=== PATIENT | female | born 1935 | race Caucasian/White ===

== ENCOUNTER 2021-12-21 11:48 | Emergency (ER) | payer OTHER ==
[~2021-12-21] VITALS: Ht 172.7 cm; Wt 61.7 kg
[2021-12-21 12:10] VITALS: BP_SYST 182
--- NOTE | 2021-12-21 12:22 | NUR ---
BIBS BY BEING SENT OVER FROM CLINIC ON THURSDAY. PT REPORTS ABDOMINAL PAIN 08/20. PMD WANTED A CT ABD TO R/O PANCREATITIS, APPENDICITIS, AND SBO AND UTI. PT REPORTS BEING CONSTIPATED LATELY. PT REPORTS HAVING SLIGHT TENDERNESS WHEN PMD EXAMINED HER RLQ BUT PT STATES SHE HAS EPIGASTRIC PAIN. ALSO STATED FREQUENCY AND BURNING WITH URINATION. LAST BM YESTERDAY, NO DIARRHEA.
--- NOTE | 2021-12-21 14:03 | NUR ---
URINE COLLECTED AND SENT TO LAB. LAB TOOK PT FOR BLOOD DRAW.
[2021-12-21 14:25] LABS: BASOPHILS # (AUTO) 0.1 K/uL (0.0-0.2); BASOPHILS % (AUTO) 0.8 % (0.0-2.0); EOSINOPHILS # (AUTO) 0.1 K/uL (0.0-0.4); EOSINOPHILS % (AUTO) 0.9 % (0.0-4.0); HEMATOCRIT 39.8 % (36-48); LYMPHOCYTES # (AUTO) 1.2 K/uL (1.0-5.5); LYMPHOCYTES % (AUTO) 16.2 % (20.5-51.5); MEAN CORPUSCULAR VOLUME 94 fL (79.0-98.0); MONOCYTES # (AUTO) 0.5 K/uL (0.0-1.0); MONOCYTES % (AUTO) 7.4 % (1.7-9.3); NEUTROPHILS # (AUTO) 5.3 K/uL (1.8-7.7); NEUTROPHILS % (AUTO) 74.7 % (40.0-70.0); PLATELET COUNT (AUTO) 213 K/uL (130-430); RED BLOOD CELL COUNT(AUTO) 4.23 MIL/uL (4.2-6.2); RED CELL DISTRIBUTION WIDTH 12.4 % (9.0-15.0); WHITE BLOOD COUNT (AUTO) 7.1 K/uL (4.8-10.8)
[2021-12-21 14:47] LABS: BILIRUBIN,URINE NEGATIVE (NEGATIVE); BLOOD, URINE NEGATIVE (NEGATIVE); CLARITY/URINE CLEAR (CLEAR); COLOR,URINE YELLOW (YELLOW); GLUCOSE,URINE NEGATIVE (NEGATIVE); KETONES,URINE NEGATIVE (NEGATIVE); LEUKOCYTE ESTERASE ,URINE NEGATIVE (NEGATIVE); NITRITE, URINE NEGATIVE (NEGATIVE); PROTEIN URINE NEGATIVE (NEGATIVE); UROBILINOGEN,URINE 0.2 (0.2-1.0)
--- NOTE | 2021-12-21 15:29 | NUR ---
12 Lead EKG done at bedside, to read
--- NOTE | 2021-12-21 16:00 | NUR ---
Patient stable in no acute distress and or discomfort, daughter at bedside
[2021-12-21 16:09] LABS: ANION GAP 11 (5-15); CHLORIDE 96 mmol/L (98-107); GLUCOSE 110 mg/dL (70-99); POTASSIUM 4.1 mmol/L (3.5-5.1); SODIUM SERUM 134 mmol/L (136-145)
[2021-12-21 16:10] LABS: ALANINE AMINOTRANSFERASE 20 U/L (12-78); ALBUMIN 4.4 g/dL (3.4-4.8); ASPARTATE AMINOTRANSFERASE 23 U/L (10-37); C-REACTIVE PROTEIN QUANT < 0.2 mg/dL (0-0.5); CALCIUM 9.4 mg/dL (8.4-11.0); CREATININE 1.19 mg/dL (0.55-1.30); UREA NITROGEN, BLOOD 16 mg/dL (8-21)
[2021-12-21 16:22] VITALS: BP_SYST 131
--- NOTE | 2021-12-21 16:23 | NUR ---
Patient given written and verbal discharge instructions and verbalizes understanding. ER MD discussed with patient the results and treatment provided. Patient in stable condition. ID arm band removed. IV catheter removed intact and dressing applied, no active bleeding. Patient educated on pain management and to follow up with PMD. Pain Scale 0/*10 Opportunity for questions provided and answered. Medication side effect fact sheet provided.
[2021-12-21 16:27] LABS: AMYLASE 51 U/L (0-100); LACTATE DEHYDROGENASE 222 U/L (81-234); LIPASE 191 U/L (73-393)
[2021-12-21] MEDS ORDERED: NITR-85 PO (16:32)
[2021-12-21] MEDS ORDERED: OMEP20CA15 PO (16:32)
--- NOTE | 2021-12-21 16:51 | NUR ---
GIVEN PRESCRIPTIONS FOR OMEPRAZOLE AND BACTRIM
== END 2021-12-21 16:23 | disposition home or self-care (01) ==
LOC: SED 11:48
DX: R10.13 Epigastric pain (principal); R11.0 Nausea; I10 Essential (primary) hypertension; Z88.2 Allergy status to sulfonamides; Z88.5 Allergy status to narcotic agent; Z79.899 Other long term (current) drug therapy
CPT/HCPCS: 36415; 70450-TC; 76376; 80053; 80162; 81003; 82150; 83605; 83615; 83690; 84484; 85025; 86140; 99284

== ENCOUNTER 2023-02-07 17:21 | Emergency (ER) | payer OTHER ==
[~2023-02-07] VITALS: Ht 172.7 cm; Wt 65.8 kg
[~2023-02-07 17:21] MED LIST: NITR-85 PO; OMEP20CA15 PO
[2023-02-07 17:26] VITALS: BP_SYST 192; PULSE 85; RESP 20; TEMP 98.3; O2SAT 99
[2023-02-07] MEDS ORDERED: OMEPRAZOLE Non-Formulary 20 MG CAPSULE.DR PO ONE (19:00)
[2023-02-07 19:13] LABS: BASOPHILS % (AUTO) 0.5 % (0.0-2.0); EOSINOPHILS # (AUTO) 0.1 K/uL (0.0-0.4); HEMATOCRIT 37.8 % (36-48); HEMOGLOBIN 12.9 g/dL (12.0-16.0); LYMPHOCYTES # (AUTO) 0.7 K/uL (1.0-5.5); LYMPHOCYTES % (AUTO) 11.3 % (20.5-51.5); MEAN CORPUSCULAR HEMOGLOBIN 33 pg (27-31); MEAN CORPUSCULAR HGB CONC 34 % (32-36); MEAN CORPUSCULAR VOLUME 95 fL (79.0-98.0); MONOCYTES # (AUTO) 0.7 K/uL (0.0-1.0); MONOCYTES % (AUTO) 10.6 % (1.7-9.3); NEUTROPHILS % (AUTO) 75.6 % (40.0-70.0); PLATELET COUNT (AUTO) 193 K/uL (130-430); RED BLOOD CELL COUNT(AUTO) 3.98 MIL/uL (4.2-6.2); RED CELL DISTRIBUTION WIDTH 12.4 % (9.0-15.0); WHITE BLOOD COUNT (AUTO) 6.6 K/uL (4.8-10.8)
[2023-02-07 19:23] LABS: ANION GAP 5 (5-15); CALCIUM 9.9 mg/dL (8.4-11.0); CARBON DIOXIDE 30 mmol/L (23-29); CHLORIDE 97 mmol/L (98-107); CREATININE 1.11 mg/dL (0.55-1.30); GLUCOSE 193 mg/dL (74-106); SODIUM SERUM 132 mmol/L (136-145); UREA NITROGEN, BLOOD 18 mg/dL (8-21)
[2023-02-07] MEDS ORDERED: PANTOPRAZOLE SODIUM 40 MG TAB PO ONE (19:30)
[2023-02-07 19:33] LABS: ALANINE AMINOTRANSFERASE 18 U/L (12-78); ALBUMIN 3.8 g/dL (3.4-4.8); ASPARTATE AMINOTRANSFERASE 12 U/L (10-37); TOTAL BILIRUBIN 0.6 mg/dL (0.0-1.0); TOTAL PROTEIN, SERUM 7.4 g/dL (6.4-8.3)
[2023-02-07] MEDS ORDERED: OMEP40CA20 PO (20:56)
[2023-02-07 21:05] VITALS: BP_SYST 186; PULSE 85; RESP 13; TEMP 97.9; O2SAT 95
[2023-02-07 21:15] LABS: INFLUENZA TYPE A Negative (NEGATIVE); INFLUENZA TYPE B NEGATIVE (NEGATIVE)
== END 2023-02-07 21:05 | disposition home or self-care (01) ==
LOC: SED 17:21
DX: R10.13 Epigastric pain (principal); E11.9 Type 2 diabetes mellitus without complications; I10 Essential (primary) hypertension; Z88.2 Allergy status to sulfonamides; Z88.5 Allergy status to narcotic agent; Z79.899 Other long term (current) drug therapy; Z20.822 Contact with and (suspected) exposure to COVID-19
CPT/HCPCS: 36415; 80053; 84484; 85025; 93005; 99284